=== PATIENT | male | born 1960 | race Two or more races ===

== ENCOUNTER 2017-08-05 14:49 | Inpatient (IN) | payer OTHER ==
[2017-08-05 18:03] VITALS: BMI 28.1
--- NOTE | 2017-08-05 20:16 | HP ---
Admission ROS [facility] Chief Complaint: Patient is being admitted to rehab for alcohol and cocaine dependence Allergies/Adverse Reactions: Allergies Allergy/AdvReac Type Severity Reaction Status Date / Time No Known Allergies Allergy Verified 08/05/17 19:28 History of Present Illness: 57 years old male admitted to rehab for alcohol and cocaine dependence. Reports asthma, diabetes and previous rehab at [facility] 05/2017. Exam Limitations: No Limitations - Ebola screening Have you traveled outside of the country in the last 21 days: No Have you had contact with anyone from an Ebola affected area: No Have you been sick,other than usual withdrawal symptoms: No Do you have a fever: No - Review of Systems Constitutional: No Symptoms Reported EENT: reports: No Symptoms Reported Respiratory: reports: No Symptoms reported Cardiac: reports: No Symptoms Reported GI: reports: No Symptoms Reported : reports: No Symptoms Reported Musculoskeletal: reports: No Symptoms Reported Integumentary: reports: No Symptoms Reported Neuro: reports: No Symptoms reported Endocrine: reports: No Symptoms Reported Hematology: reports: No Symptoms Reported Psychiatric: reports: No Sypmtoms Reported Other Systems: Reviewed and Negative Patient History - Patient Medical History Hx Anemia: No Hx Asthma: Yes (on MDI) Hx Chronic Obstructive Pulmonary Disease (COPD): No Hx Cancer: No Hx Cardiac Disorders: No Hx Congestive Heart Failure: No Hx Hypertension: No Hx Hypercholesterolemia: No HX Cerebrovascular Accident: No Hx Seizures: No Hx Diabetes: Yes (on Metformin) Hx Gastrointestinal Disorders: No Hx Liver Disease: No Hx Genitourinary Disorders: No Hx Sexually Transmitted Disorders: No Hx Renal Disease (ESRD): No Hx Thyroid Disease: No Hx Human Immunodeficiency Virus (HIV): No (Negative 2016) Hx Hepatitis C: No Hx Depression: No Hx Suicide Attempt: No (Denies suicidal ideation) Hx Bipolar Disorder: No Hx Schizophrenia: No - Patient Surgical History Past Surgical History: Yes Hx Neurologic Surgery: No Hx Cataract Extraction: No Hx Cardiac Surgery: No Hx Lung Surgery: No Hx Abdominal Surgery: No Hx Appendectomy: No Hx Cholecystectomy: No Hx Genitourinary Surgery: No Hx Orthopedic Surgery: Yes (Jaw 1998 and left ankle 1997) Anesthesia Reaction: No - PPD History Previous Implant?: No PPD to be Administered?: Yes - Reproductive History Patient is a Female of Child Bearing Age (11 -55 yrs old): No (male) - Smoking Cessation Smoking history: Current some day smoker Have you smoked in the past 12 months: Yes Aproximately how many cigarettes per day: 20 Hx Chewing Tobacco Use: No Initiated information on smoking cessation: Yes 'Breaking Loose' booklet given: 08/05/17 - Substance & Tx. History Hx Alcohol Use: No Hx Substance Use: Yes Substance Use Type: Alcohol, Cocaine Hx Substance Use Treatment: Yes - Substances Abused Alcohol Route: Oral Frequency: 3-6 times per week Amount used: Beer 3 packs, Vodka 5 shots Age of first use: 18 Date of Last Use: 06/19/17 Cocaine Route: Inhalation Frequency: 3-6 times per week Amount used: 3 grams Age of first use: 18 Date of Last Use: 06/19/17 Family Disease History - Family Disease History Family Disease History: CA: Father (Lung Ca, ), Mother (Breast Ca, ) Admission Physical Exam [facility] - Vital Signs Vital Signs: Vital Signs - 24 hr 08/05/17 18:01 Temperature 97.2 F L Pulse Rate 81 Respiratory 18 Rate Blood Pressure 134/75 - Physical General Appearance: Yes: No Apparent Distress, Nourished, Appropriately Dressed HEENTM: Yes: Within Normal Limits, EOMI, Normal Voice, RUDDY Respiratory: Yes: Lungs Clear, Normal Breath Sounds, No Respiratory Distress Neck: Yes: Supple, Other (surgical scar right neck) Breast: Yes: Breast Exam Deferred Cardiology: Yes: Regular Rhythm, Regular Rate, S1, S2 Abdominal: Yes: Normal Bowel Sounds, Non Tender, Soft Genitourinary: Yes: Within Normal Limits Back: Yes: Within Normal Limits Musculoskeletal: Yes: Within Normal Limits Extremities: Yes: Normal Inspection, Normal Range of Motion, Non-Tender, Other ( surgical scar left ankle) Neurological: Yes: Fully Oriented, Alert, Normal Response Integumentary: Yes: Warm Lymphatic: Yes: Within Normal Limits - Diagnostic (1) Alcohol dependence with uncomplicated withdrawal Current Visit: Yes Status: Chronic (2) Cocaine dependence Current Visit: Yes Status: Chronic (3) Asthma Current Visit: Yes Status: Chronic Cleared for Admission [facility] - Detox or Rehab [facility] Level of Care: Observation Bed Claeared for Rehab Admission: Yes [facility] Breath Alcohol Content Breath Alcohol Content: 0 Urine Drug Screen - Results Drug Screen Negative: Yes Inpatient Rehab Admission - Initial Determination Are CD services needed?: Yes Free of communicable disease: Yes Not in need of hospitalization: Yes - Rehab Admission Criteria Previous failed treatment: Yes Poor recovery environment: Yes Comorbidities: Yes Lacks judgement: No Patient is meeting Inpatient Rehab admission criteria:: Yes
[2017-08-05] MEDS ORDERED: hydrOXYzine PAMOATE 50 MG CAPSULE (FP) PO PRN (20:32)
[2017-08-05] MEDS ORDERED: guaiFENesin/D-METHORPHAN HB 10 ML UNIT-DOSE CUPS PO PRN (20:32)
[2017-08-05] MEDS ORDERED: MAGNESIUM CITRATE 300 ML BOTTLE PO PRN (20:32)
[2017-08-05] MEDS ORDERED: LOPERAMIDE HCL 2 MG CAPSULE PO PRN (20:32)
[2017-08-05] MEDS ORDERED: MAG HYDROX/AL HYDROX/SIMETH 30 ML UNIT-DOSE CUP PO PRN (20:32)
[2017-08-05] MEDS ORDERED: TUBERCULIN PPD 5 TU/0.1ML VIAL ID ONE (22:54)
[2017-08-05] MEDS: ATORVASTATIN CA 20 MG TABLET (FP) PO SCH (22:57)
[2017-08-05] MEDS: THIAMINE HCL 100 MG TABLET (FP) PO SCH (22:57)
[2017-08-05] MEDS: ALBUTEROL SO4 18 GM HFA INHALER IH SCH (22:57)
[2017-08-06 00:49] LABS: URINE APPEARANCE CLEAR; URINE BILIRUBIN NEGATIVE (NEGATIVE); URINE BLOOD NEGATIVE (NEGATIVE); URINE COLOR YELLOW; URINE GLUCOSE (UA) NEGATIVE (NEGATIVE); URINE KETONE NEGATIVE (NEGATIVE); URINE NITRITE NEGATIVE (NEGATIVE); URINE PROTEIN NEGATIVE (NEGATIVE); URINE UROBILINOGEN NEGATIVE mg/dL (0.2-1.0)
[2017-08-06] MEDS: metFORMIN HCL 500 MG TABLET (FP) PO SCH ×2 (06:29→17:14)
[2017-08-06] MEDS: ALBUTEROL SO4 18 GM HFA INHALER IH SCH ×3 (06:29→21:24)
[2017-08-06] MEDS: NICOTINE POLACRILEX 2 MG GUM BC PRN (07:37)
[2017-08-06 10:04] LABS: MCH 31.8 pg (25.7-33.7); MCHC 34.5 g/dl (32.0-35.9); MEAN CELL VOLUME 92.1 fl (80-96); MEAN PLT VOLUME 7.8 fl (7.5-11.1); PLATELET COUNT 317 K/MM3 (134-434); RDW 12.9 % (11.9-15.9); WHITE BLOOD COUNT 10.1 K/mm3 (4.0-10.0)
[2017-08-06 10:07] LABS: ALBUMIN 3.7 g/dl (3.4-5.0); ANION GAP 4 (8-16); CALCIUM 8.6 mg/dL (8.5-10.1); CO2 32 mmol/L (21-32); GLUCOSE,RANDOM 155 mg/dL (74-106)
[2017-08-06] MEDS: ASPIRIN 81 MG CHEWABLE TABLETS PO SCH (10:10)
[2017-08-06] MEDS: ARIPiprazole 2 MG TABLET PO SCH (10:10)
[2017-08-06 10:11] LABS: ALK PHOS 118 U/L (45-117); BILIRUBIN,TOTAL 0.7 mg/dL (0.2-1.0); CREATININE 1.1 mg/dL (0.7-1.3); SGOT/AST 19 U/L (15-37); SGPT/ALT 54 U/L (12-78); TOT PROT 7.1 g/dl (6.4-8.2)
[2017-08-06] MEDS: NICOTINE 14 MG/24 HOURS TOPICAL PATCH TD SCH (10:11)
--- NOTE | 2017-08-06 10:11 | EKG ---
Test Reason : Blood Pressure : / mmHG Vent. Rate : 070 BPM Atrial Rate : 070 BPM P-R Int : 138 ms QRS Dur : 108 ms QT Int : 392 ms P-R-T Axes : 040 057 042 degrees QTc Int : 423 ms NORMAL SINUS RHYTHM NORMAL ECG NO PREVIOUS ECGS AVAILABLE Confirmed by VITA SIMMONS MD ([id number]) on 08/06/2017 10:11:04 AM Referred By: Confirmed By:VITA SIMMONS MD
[2017-08-06] MEDS: PRENATAL VITAMINS W/ FOLIC ACID TABLET (FP) PO SCH (10:12)
[2017-08-06 10:24] LABS: URINE LEUK ESTERASE Negative (NEGATIVE)
[2017-08-06] MEDS ORDERED: FLU VACCINE QUAD 60 MCG/0.5 ML (MDV 17-18) IM ONE (12:00)
[2017-08-06] MEDS ORDERED: PNEUMOC 13-VAL CONJ-DIP CRM/PF 0.5 ML DISP.SYRIN IM ONE (12:00)
[2017-08-06] MEDS ORDERED: PNEUMOCOCCAL 23 VACCINE 0.5 ML VIAL IM ONE (12:00)
--- NOTE | 2017-08-06 16:30 | HP ---
Psychiatrist Admission - Data Date of interview: 08/06/17 Admission source: [facility] Identifying data: This is the first admission to [address] [place] [address] inpatient rehabilitation for this 57 yo single,no children,homeless,employed. Medical History: Significant for DM,Fracture of L ankle. Psychiatric History: Reports some anxiety once in a while since 12 yo,addressed this recently.Last time he was on psych meds was [place] in [facility] inpatient rehab.Patient was on Neurontin 100 mg po tid,Abilfy 10 mg po daily.Patient has no regular psychiatric follow up,but he is willing to restart above mentioned medications. Physical/Sexual Abuse/Trauma History: denies Vital Signs: Vital Signs - 24 hr 08/05/17 08/05/17 08/06/17 18:01 23:29 03:30 Temperature 97.2 F L 97.7 F Pulse Rate 81 89 Respiratory 18 18 18 Rate Blood Pressure 134/75 140/88 08/06/17 06:54 Temperature 97.4 F L Pulse Rate 74 Respiratory 18 Rate Blood Pressure 134/95 Allergies/Adverse Reactions: Allergies Allergy/AdvReac Type Severity Reaction Status Date / Time No Known Allergies Allergy Verified 08/05/17 19:28 Date of last physical exam: 08/05/17 Concur with the findings of this exam: Yes - Substance Abuse/Tx History Hx Alcohol Use: Yes (drinking since 18 yo,hard liquor) Hx Substance Use: Yes (cocaine since 19 yo,$ 200 on the weekend) Substance Use Type: Alcohol, Cocaine Hx Substance Use Treatment: Yes (this is his first inpatient rehab,longest abstinence 4 years) Mental Status Exam - Mental Status Exam Alert and Oriented to: Time, Place, Person Cognitive Function: Grossly Intact Patient Appearance: Well Groomed Mood: Nervous Affect: Mood Congruent, Labile Patient Behavior: Cooperative Speech Pattern: Clear Voice Loudness: Normal Thought Process: Goal Oriented Thought Disorder: Not Present Hallucinations: Denies Suicidal Ideation: Denies Homicidal Ideation: Denies Insight/Judgement: Fair Sleep: Difficulty falling asleep Appetite: Good Muscle strength/Tone: Normal Gait/Station: Normal Psychiatric Findings - Problem List ([place] 1, 2,3) (1) Asthma Current Visit: Yes Status: Chronic (2) Cocaine dependence Current Visit: Yes Status: Chronic (3) Alcohol dependence Current Visit: Yes Status: Chronic (4) Substance induced mood disorder Current Visit: Yes Status: Chronic - Initial Treatment Plan Initial Treatment Plan: Neurontin 300 mg po tid,Abilify 10 mg po daily and Trazodone 50 mg po hs.
[2017-08-06] MEDS: MENTHOL/PHENOL 1 EACH UD MM PRN (20:35)
[2017-08-06] MEDS: ATORVASTATIN CA 20 MG TABLET (FP) PO SCH (21:23)
[2017-08-06] MEDS: THIAMINE HCL 100 MG TABLET (FP) PO SCH (21:23)
[2017-08-06] MEDS: traZODone HCL 50 MG TABLET (FP) PO SCH (21:23)
[2017-08-06] MEDS: GABAPENTIN 300 MG CAPSULE (FP) PO SCH (21:23)
[2017-08-06] MEDS: diphenhydrAMINE HCL 50 MG CAPSULE PO PRN (21:24)
[2017-08-07] MEDS: metFORMIN HCL 500 MG TABLET (FP) PO SCH ×2 (06:47→17:06)
[2017-08-07] MEDS: GABAPENTIN 300 MG CAPSULE (FP) PO SCH ×3 (06:47→21:44)
[2017-08-07] MEDS: ALBUTEROL SO4 18 GM HFA INHALER IH SCH ×3 (07:17→22:28)
[2017-08-07] MEDS: ASPIRIN 81 MG CHEWABLE TABLETS PO SCH (10:09)
[2017-08-07] MEDS: ARIPiprazole 2 MG TABLET PO SCH (10:09)
[2017-08-07] MEDS: PRENATAL VITAMINS W/ FOLIC ACID TABLET (FP) PO SCH (10:09)
[2017-08-07] MEDS: NICOTINE 14 MG/24 HOURS TOPICAL PATCH TD SCH (10:09)
[2017-08-07] MEDS: traZODone HCL 50 MG TABLET (FP) PO SCH (21:44)
[2017-08-07] MEDS: THIAMINE HCL 100 MG TABLET (FP) PO SCH (21:44)
[2017-08-07] MEDS: ATORVASTATIN CA 20 MG TABLET (FP) PO SCH (21:44)
[2017-08-07] MEDS: MENTHOL/PHENOL 1 EACH UD MM PRN (22:30)
[2017-08-08] MEDS: metFORMIN HCL 500 MG TABLET (FP) PO SCH ×2 (06:48→16:44)
[2017-08-08] MEDS: GABAPENTIN 300 MG CAPSULE (FP) PO SCH ×3 (06:48→21:27)
[2017-08-08] MEDS: ALBUTEROL SO4 18 GM HFA INHALER IH SCH ×3 (06:50→21:29)
[2017-08-08] MEDS: NICOTINE POLACRILEX 2 MG GUM BC PRN (06:59)
[2017-08-08] MEDS: NICOTINE 14 MG/24 HOURS TOPICAL PATCH TD SCH (10:01)
[2017-08-08] MEDS: PRENATAL VITAMINS W/ FOLIC ACID TABLET (FP) PO SCH (10:01)
[2017-08-08] MEDS: ASPIRIN 81 MG CHEWABLE TABLETS PO SCH (10:01)
[2017-08-08] MEDS: ARIPiprazole 2 MG TABLET PO SCH (10:02)
[2017-08-08] MEDS: MENTHOL/PHENOL 1 EACH UD MM PRN (20:01)
[2017-08-08] MEDS: diphenhydrAMINE HCL 50 MG CAPSULE PO PRN (21:27)
[2017-08-08] MEDS: THIAMINE HCL 100 MG TABLET (FP) PO SCH (21:27)
[2017-08-08] MEDS: traZODone HCL 50 MG TABLET (FP) PO SCH (21:27)
[2017-08-08] MEDS: ATORVASTATIN CA 20 MG TABLET (FP) PO SCH (21:27)
[2017-08-09] MEDS: metFORMIN HCL 500 MG TABLET (FP) PO SCH ×2 (06:20→16:50)
[2017-08-09] MEDS: ALBUTEROL SO4 18 GM HFA INHALER IH SCH ×3 (06:20→21:33)
[2017-08-09] MEDS: GABAPENTIN 300 MG CAPSULE (FP) PO SCH ×3 (06:20→21:29)
[2017-08-09] MEDS: MENTHOL/PHENOL 1 EACH UD MM PRN (06:54)
[2017-08-09] MEDS: NICOTINE POLACRILEX 2 MG GUM BC PRN (07:02)
[2017-08-09] MEDS: PRENATAL VITAMINS W/ FOLIC ACID TABLET (FP) PO SCH (10:14)
[2017-08-09] MEDS: ASPIRIN 81 MG CHEWABLE TABLETS PO SCH (10:14)
[2017-08-09] MEDS: NICOTINE 14 MG/24 HOURS TOPICAL PATCH TD SCH (10:14)
[2017-08-09] MEDS: ARIPiprazole 2 MG TABLET PO SCH (10:15)
[2017-08-09] MEDS: ATORVASTATIN CA 20 MG TABLET (FP) PO SCH (21:29)
[2017-08-09] MEDS: THIAMINE HCL 100 MG TABLET (FP) PO SCH (21:29)
[2017-08-09] MEDS: traZODone HCL 50 MG TABLET (FP) PO SCH (21:29)
[2017-08-10] MEDS: ACETAMINOPHEN 325 MG TABLET (FP) PO PRN (01:06)
[2017-08-10] MEDS: MENTHOL/PHENOL 1 EACH UD MM PRN (01:07)
[2017-08-10] MEDS: metFORMIN HCL 500 MG TABLET (FP) PO SCH ×2 (06:24→16:44)
[2017-08-10] MEDS: GABAPENTIN 300 MG CAPSULE (FP) PO SCH ×3 (06:24→21:23)
[2017-08-10] MEDS: ALBUTEROL SO4 18 GM HFA INHALER IH SCH ×3 (07:25→21:23)
[2017-08-10] MEDS: ASPIRIN 81 MG CHEWABLE TABLETS PO SCH (09:59)
[2017-08-10] MEDS: PRENATAL VITAMINS W/ FOLIC ACID TABLET (FP) PO SCH (10:00)
[2017-08-10] MEDS: NICOTINE 14 MG/24 HOURS TOPICAL PATCH TD SCH (10:00)
[2017-08-10] MEDS: ARIPiprazole 2 MG TABLET PO SCH (10:02)
[2017-08-10] MEDS: THIAMINE HCL 100 MG TABLET (FP) PO SCH (21:23)
[2017-08-10] MEDS: ATORVASTATIN CA 20 MG TABLET (FP) PO SCH (21:23)
[2017-08-10] MEDS: traZODone HCL 50 MG TABLET (FP) PO SCH (21:23)
[2017-08-10] MEDS: diphenhydrAMINE HCL 50 MG CAPSULE PO PRN (22:01)
[2017-08-10] MEDS: NICOTINE POLACRILEX 2 MG GUM BC PRN (22:01)
[2017-08-11] MEDS: ALBUTEROL SO4 18 GM HFA INHALER IH SCH ×3 (06:22→21:29)
[2017-08-11] MEDS: GABAPENTIN 300 MG CAPSULE (FP) PO SCH ×3 (06:22→21:28)
[2017-08-11] MEDS: metFORMIN HCL 500 MG TABLET (FP) PO SCH ×2 (06:22→17:21)
[2017-08-11] MEDS: ARIPiprazole 2 MG TABLET PO SCH (10:13)
[2017-08-11] MEDS: ASPIRIN 81 MG CHEWABLE TABLETS PO SCH (10:14)
[2017-08-11] MEDS: NICOTINE 14 MG/24 HOURS TOPICAL PATCH TD SCH (10:14)
[2017-08-11] MEDS: PRENATAL VITAMINS W/ FOLIC ACID TABLET (FP) PO SCH (10:14)
[2017-08-11] MEDS: THIAMINE HCL 100 MG TABLET (FP) PO SCH (21:28)
[2017-08-11] MEDS: ATORVASTATIN CA 20 MG TABLET (FP) PO SCH (21:28)
[2017-08-11] MEDS: traZODone HCL 50 MG TABLET (FP) PO SCH (21:28)
[2017-08-11] MEDS: diphenhydrAMINE HCL 50 MG CAPSULE PO PRN (21:30)
[2017-08-11] MEDS: NICOTINE POLACRILEX 2 MG GUM BC PRN (22:06)
[2017-08-12] MEDS: ALBUTEROL SO4 18 GM HFA INHALER IH SCH ×3 (06:29→21:28)
[2017-08-12] MEDS: GABAPENTIN 300 MG CAPSULE (FP) PO SCH ×3 (06:29→21:28)
[2017-08-12] MEDS: metFORMIN HCL 500 MG TABLET (FP) PO SCH ×2 (06:29→16:51)
[2017-08-12] MEDS: P-EPHED 60MG/TRIPROLIDI 2.5MG TABLET PO PRN ×2 (06:30→17:23)
[2017-08-12] MEDS: ASPIRIN 81 MG CHEWABLE TABLETS PO SCH (10:18)
[2017-08-12] MEDS: ARIPiprazole 2 MG TABLET PO SCH (10:18)
[2017-08-12] MEDS: PRENATAL VITAMINS W/ FOLIC ACID TABLET (FP) PO SCH (10:18)
[2017-08-12] MEDS: NICOTINE 14 MG/24 HOURS TOPICAL PATCH TD SCH (10:18)
[2017-08-12] MEDS ORDERED: COLLOIDAL OATMEAL 1 BAR EACH TP PRN (12:31)
[2017-08-12] MEDS: MAGNESIUM HYDROX 2400MG/30ML ORAL SUSPENSION 30 ML CUP PO PRN (17:24)
[2017-08-12] MEDS: ATORVASTATIN CA 20 MG TABLET (FP) PO SCH (21:28)
[2017-08-12] MEDS: traZODone HCL 50 MG TABLET (FP) PO SCH (21:28)
[2017-08-12] MEDS: THIAMINE HCL 100 MG TABLET (FP) PO SCH (21:28)
[2017-08-12] MEDS: diphenhydrAMINE HCL 50 MG CAPSULE PO PRN (21:29)
[2017-08-13] MEDS: GABAPENTIN 300 MG CAPSULE (FP) PO SCH ×4 (06:10→21:27)
[2017-08-13] MEDS: metFORMIN HCL 500 MG TABLET (FP) PO SCH ×2 (06:10→16:41)
[2017-08-13] MEDS: ALBUTEROL SO4 18 GM HFA INHALER IH SCH ×3 (07:44→21:28)
[2017-08-13] MEDS: ASPIRIN 81 MG CHEWABLE TABLETS PO SCH (09:51)
[2017-08-13] MEDS: PRENATAL VITAMINS W/ FOLIC ACID TABLET (FP) PO SCH (09:51)
[2017-08-13] MEDS: NICOTINE 14 MG/24 HOURS TOPICAL PATCH TD SCH (09:52)
[2017-08-13] MEDS: ARIPiprazole 2 MG TABLET PO SCH (09:54)
[2017-08-13] MEDS: NICOTINE POLACRILEX 2 MG GUM BC PRN (09:56)
--- NOTE | 2017-08-13 14:23 | PN ---
Psychiatric Progress Note Vital Signs: Vital Signs Period Temp Pulse Resp BP Sys/Monae Pulse Ox Last 24 Hr 97.7 F 79 16-18 111/67 Date of Session: 08/13/17 Chief Complaint:: Perez still having mood instability.I used to take high dose of neurontin. HPI: Patient addressed Alcohol and Cocaine dependence comorbid with Substance induced mood disorder. ROS: Significant for BA. Current Medications: Active Medications Generic Name Dose Route Start Last Admin Trade Name Freq PRN Reason Stop Dose Admin Acetaminophen 650 mg 08/05/17 20:32 08/10/17 01:06 Tylenol - PO 650 mg Q4H PRN Administration PAIN Al Hydroxide/Mg Hydroxide 30 ml 08/05/17 20:32 Mylanta Oral Suspension - PO Q6H PRN DYSPEPSIA Albuterol Sulfate 2 puff 08/05/17 22:00 08/13/17 07:44 Ventolin Hfa Inhaler - IH Not Given TID COLTON Aripiprazole 2 mg 08/06/17 10:00 08/13/17 09:54 Abilify PO 2 mg DAILY COLTON Administration Aspirin 81 mg 08/06/17 10:00 08/13/17 09:51 Asa - PO 81 mg DAILY COLTON Administration Atorvastatin Calcium 20 mg 08/05/17 22:00 08/12/17 21:28 Lipitor - PO 20 mg HS COLTON Administration Colloidal Oatmeal 1 applic 08/12/17 12:31 Aveeno Soap - TP DAILY PRN HYGEINE Diphenhydramine HCl 50 mg 08/05/17 20:32 08/12/17 21:29 Benadryl - PO 50 mg HSMR1 PRN Administration INSOMNIA Eucalyptus/Menthol/Phenol/Sorbitol 1 each 08/05/17 20:32 08/10/17 01:07 Cepastat Lozenge - MM 1 each Q4H PRN Administration SORE THROAT Gabapentin 600 mg 08/13/17 14:30 Neurontin - PO TID COLTON Guaifenesin 10 ml 08/05/17 20:32 08/08/17 06:49 Robitussin Dm - PO 10 ml Q6H PRN Administration COUGH Hydroxyzine Pamoate 50 mg 08/05/17 20:32 Vistaril - PO Q4H PRN AGITATION Loperamide HCl 4 mg 08/05/17 20:32 Imodium - PO Q6H PRN DIARRHEA Magnesium Citrate 300 ml 08/05/17 20:32 Citroma - PO Q48H PRN CONSTIPATION Magnesium Hydroxide 30 ml 08/05/17 20:32 08/12/17 17:24 Milk Of Magnesia - PO 30 ml DAILY PRN Administration CONSTIPATION Metformin HCl 500 mg 08/06/17 07:00 08/13/17 06:10 Glucophage - PO 500 mg BIDI COLTON Administration Nicotine 14 mg 08/06/17 10:00 08/13/17 09:52 Nicoderm Patch - TD 14 mg DAILY COLTON Administration Nicotine Polacrilex 2 mg 08/05/17 20:32 08/13/17 09:56 Nicorette Gum - BC 2 mg Q2H PRN Administration NICOTINE REPLACEMENT RX Multivit/Folic Acid/Iron 1 tab 08/06/17 10:00 08/13/17 09:51 Vitamins (Sjr) - PO 1 tab DAILY COLTON Administration Pseudoephedrine/Triprolidine 1 combo 08/05/17 20:32 08/12/17 17:23 Actifed - PO 1 combo TID PRN Administration NASAL CONGESTION Thiamine HCl 100 mg 08/05/17 22:00 08/12/17 21:28 Vitamin B1 - PO 100 mg HS COLTON Administration Trazodone HCl 50 mg 08/06/17 22:00 08/12/17 21:28 Desyrel - PO 50 mg HS COLTON Administration Current Side Effect: No Lab tests ordered: No Lab tests reviewed: Yes Provider note:: Patient was seen in my office,chart was revuewed,attending notes appreciated.Treatment plan including medications managemnt has been discussed with the patient.Properties of Neurontin has been discussed with the patient including side effects,benefits and dose adjustment.Neurontin 300 mg po tid will be adjusted to 600 mg po tid. Supportive therapy provided. Total face to face time:: 30 Mental Status Exam - Mental Status Exam Alert and Oriented to: Time, Place, Person Cognitive Function: Grossly Intact Patient Appearance: Well Groomed Mood: Anxious Affect: Mood Congruent, Labile Patient Behavior: Cooperative Speech Pattern: Clear Voice Loudness: Normal Thought Process: Goal Oriented Thought Disorder: Not Present Hallucinations: Denies Suicidal Ideation: Denies Homicidal Ideation: Denies Insight/Judgement: Fair Sleep: Fair Appetite: Good Muscle strength/Tone: Normal Gait/Station: Normal Psychiatric Treatment Plan - Problem List (1) Asthma Current Visit: Yes (2) Cocaine dependence Current Visit: Yes (3) Alcohol dependence Current Visit: Yes (4) Substance induced mood disorder Current Visit: Yes
[2017-08-13] MEDS: THIAMINE HCL 100 MG TABLET (FP) PO SCH (21:27)
[2017-08-13] MEDS: ATORVASTATIN CA 20 MG TABLET (FP) PO SCH (21:27)
[2017-08-13] MEDS: traZODone HCL 50 MG TABLET (FP) PO SCH (21:27)
[2017-08-13] MEDS: diphenhydrAMINE HCL 50 MG CAPSULE PO PRN (21:28)
[2017-08-13] MEDS: MAGNESIUM HYDROX 2400MG/30ML ORAL SUSPENSION 30 ML CUP PO PRN (21:30)
[2017-08-14] MEDS: GABAPENTIN 300 MG CAPSULE (FP) PO SCH ×3 (06:09→21:19)
[2017-08-14] MEDS: metFORMIN HCL 500 MG TABLET (FP) PO SCH ×2 (06:09→16:34)
[2017-08-14] MEDS: ALBUTEROL SO4 18 GM HFA INHALER IH SCH ×3 (06:11→21:21)
[2017-08-14] MEDS: ASPIRIN 81 MG CHEWABLE TABLETS PO SCH (09:38)
[2017-08-14] MEDS: PRENATAL VITAMINS W/ FOLIC ACID TABLET (FP) PO SCH (09:38)
[2017-08-14] MEDS: NICOTINE 14 MG/24 HOURS TOPICAL PATCH TD SCH (09:39)
[2017-08-14] MEDS: ARIPiprazole 2 MG TABLET PO SCH (09:39)
[2017-08-14] MEDS: P-EPHED 60MG/TRIPROLIDI 2.5MG TABLET PO PRN (12:30)
[2017-08-14] MEDS: MAGNESIUM HYDROX 2400MG/30ML ORAL SUSPENSION 30 ML CUP PO PRN (13:55)
[2017-08-14] MEDS: ATORVASTATIN CA 20 MG TABLET (FP) PO SCH (21:19)
[2017-08-14] MEDS: THIAMINE HCL 100 MG TABLET (FP) PO SCH (21:19)
[2017-08-14] MEDS: traZODone HCL 50 MG TABLET (FP) PO SCH (21:19)
[2017-08-14] MEDS: NICOTINE POLACRILEX 2 MG GUM BC PRN (21:20)
[2017-08-14] MEDS: diphenhydrAMINE HCL 50 MG CAPSULE PO PRN (21:20)
[2017-08-15] MEDS: metFORMIN HCL 500 MG TABLET (FP) PO SCH ×2 (06:17→16:44)
[2017-08-15] MEDS: GABAPENTIN 300 MG CAPSULE (FP) PO SCH ×3 (06:18→21:23)
[2017-08-15] MEDS: ALBUTEROL SO4 18 GM HFA INHALER IH SCH ×2 (06:18→14:08)
[2017-08-15] MEDS: MAGNESIUM HYDROX 2400MG/30ML ORAL SUSPENSION 30 ML CUP PO PRN (06:19)
[2017-08-15] MEDS: P-EPHED 60MG/TRIPROLIDI 2.5MG TABLET PO PRN (07:35)
[2017-08-15] MEDS: NICOTINE 14 MG/24 HOURS TOPICAL PATCH TD SCH (09:56)
[2017-08-15] MEDS: ASPIRIN 81 MG CHEWABLE TABLETS PO SCH (09:56)
[2017-08-15] MEDS: ARIPiprazole 2 MG TABLET PO SCH (09:56)
[2017-08-15] MEDS: PRENATAL VITAMINS W/ FOLIC ACID TABLET (FP) PO SCH (09:56)
[2017-08-15] MEDS: ALBUTEROL SO4 18 GM HFA INHALER IH PRN (17:48)
[2017-08-15] MEDS: ATORVASTATIN CA 20 MG TABLET (FP) PO SCH (21:23)
[2017-08-15] MEDS: traZODone HCL 50 MG TABLET (FP) PO SCH (21:23)
[2017-08-15] MEDS: THIAMINE HCL 100 MG TABLET (FP) PO SCH (21:23)
[2017-08-15] MEDS: diphenhydrAMINE HCL 50 MG CAPSULE PO PRN (21:24)
[2017-08-16] MEDS: GABAPENTIN 300 MG CAPSULE (FP) PO SCH ×3 (06:23→21:30)
[2017-08-16] MEDS: metFORMIN HCL 500 MG TABLET (FP) PO SCH ×2 (06:23→16:39)
[2017-08-16] MEDS: MAGNESIUM HYDROX 2400MG/30ML ORAL SUSPENSION 30 ML CUP PO PRN (06:25)
[2017-08-16] MEDS: NICOTINE 14 MG/24 HOURS TOPICAL PATCH TD SCH (09:52)
[2017-08-16] MEDS: PRENATAL VITAMINS W/ FOLIC ACID TABLET (FP) PO SCH (09:52)
[2017-08-16] MEDS: ASPIRIN 81 MG CHEWABLE TABLETS PO SCH (09:52)
[2017-08-16] MEDS: ARIPiprazole 2 MG TABLET PO SCH (09:53)
[2017-08-16] MEDS: ATORVASTATIN CA 20 MG TABLET (FP) PO SCH (21:29)
[2017-08-16] MEDS: traZODone HCL 50 MG TABLET (FP) PO SCH (21:29)
[2017-08-16] MEDS: THIAMINE HCL 100 MG TABLET (FP) PO SCH (21:29)
[2017-08-16] MEDS: ACETAMINOPHEN 325 MG TABLET (FP) PO PRN (21:31)
[2017-08-16] MEDS: diphenhydrAMINE HCL 50 MG CAPSULE PO PRN (21:32)
[2017-08-17] MEDS: GABAPENTIN 300 MG CAPSULE (FP) PO SCH ×3 (06:01→21:15)
[2017-08-17] MEDS: metFORMIN HCL 500 MG TABLET (FP) PO SCH ×2 (06:01→16:58)
[2017-08-17] MEDS: ACETAMINOPHEN 325 MG TABLET (FP) PO PRN (06:02)
[2017-08-17] MEDS: NICOTINE POLACRILEX 2 MG GUM BC PRN (06:02)
[2017-08-17 06:49] VITALS: TEMP 97.3
[2017-08-17] MEDS: ASPIRIN 81 MG CHEWABLE TABLETS PO SCH (09:56)
[2017-08-17] MEDS: NICOTINE 14 MG/24 HOURS TOPICAL PATCH TD SCH (09:56)
[2017-08-17] MEDS: PRENATAL VITAMINS W/ FOLIC ACID TABLET (FP) PO SCH (09:56)
[2017-08-17] MEDS: ARIPiprazole 2 MG TABLET PO SCH (09:56)
[2017-08-17] MEDS: THIAMINE HCL 100 MG TABLET (FP) PO SCH (21:14)
[2017-08-17] MEDS: ATORVASTATIN CA 20 MG TABLET (FP) PO SCH (21:15)
[2017-08-17] MEDS: traZODone HCL 50 MG TABLET (FP) PO SCH (21:15)
[2017-08-17] MEDS: diphenhydrAMINE HCL 50 MG CAPSULE PO PRN (21:15)
[2017-08-17] MEDS: ALBUTEROL SO4 18 GM HFA INHALER IH PRN (21:16)
[2017-08-18] MEDS: metFORMIN HCL 500 MG TABLET (FP) PO SCH ×2 (06:27→17:14)
[2017-08-18] MEDS: GABAPENTIN 300 MG CAPSULE (FP) PO SCH ×3 (06:27→21:19)
[2017-08-18] MEDS: ASPIRIN 81 MG CHEWABLE TABLETS PO SCH (09:53)
[2017-08-18] MEDS: PRENATAL VITAMINS W/ FOLIC ACID TABLET (FP) PO SCH (09:53)
[2017-08-18] MEDS: NICOTINE 14 MG/24 HOURS TOPICAL PATCH TD SCH (09:53)
[2017-08-18] MEDS: ARIPiprazole 2 MG TABLET PO SCH (09:53)
[2017-08-18] MEDS: traZODone HCL 50 MG TABLET (FP) PO SCH (21:19)
[2017-08-18] MEDS: THIAMINE HCL 100 MG TABLET (FP) PO SCH (21:19)
[2017-08-18] MEDS: ATORVASTATIN CA 20 MG TABLET (FP) PO SCH (21:19)
[2017-08-18] MEDS: diphenhydrAMINE HCL 50 MG CAPSULE PO PRN (21:19)
[2017-08-19] MEDS: metFORMIN HCL 500 MG TABLET (FP) PO SCH (06:07)
[2017-08-19] MEDS: GABAPENTIN 300 MG CAPSULE (FP) PO SCH (06:07)
[2017-08-19 06:46] VITALS: BP 121/76; PULSE 70
[2017-08-19] MEDS: NICOTINE 14 MG/24 HOURS TOPICAL PATCH TD SCH (10:29)
[2017-08-19] MEDS: PRENATAL VITAMINS W/ FOLIC ACID TABLET (FP) PO SCH (10:29)
[2017-08-19] MEDS: ASPIRIN 81 MG CHEWABLE TABLETS PO SCH (10:29)
[2017-08-19] MEDS: ARIPiprazole 2 MG TABLET PO SCH (10:29)
--- NOTE | 2017-08-19 11:30 | PN ---
Psychiatric Progress Note Vital Signs: Vital Signs Period Temp Pulse Resp BP Sys/Monae Pulse Ox Last 24 Hr 97.3 F 70 18-18 121/76 Date of Session: 08/19/17 Chief Complaint:: discharge HPI: Patient has addressed alcohol , cocaine dependence comorbid substance induced mood disorder. Current Medications: Active Medications Generic Name Dose Route Start Last Admin Trade Name Freq PRN Reason Stop Dose Admin Acetaminophen 650 mg 08/05/17 20:32 08/17/17 06:02 Tylenol - PO 650 mg Q4H PRN Administration PAIN Al Hydroxide/Mg Hydroxide 30 ml 08/05/17 20:32 08/18/17 00:07 Mylanta Oral Suspension - PO 30 ml Q6H PRN Administration DYSPEPSIA Albuterol Sulfate 2 puff 08/15/17 17:02 08/17/17 21:16 Ventolin Hfa Inhaler - IH 2 puff Q4H PRN Administration ASTHMA Aripiprazole 2 mg 08/06/17 10:00 08/19/17 10:29 Abilify PO 2 mg DAILY COLTON Administration Aspirin 81 mg 08/06/17 10:00 08/19/17 10:29 Asa - PO 81 mg DAILY COLTON Administration Atorvastatin Calcium 20 mg 08/05/17 22:00 08/18/17 21:19 Lipitor - PO 20 mg HS COLTON Administration Colloidal Oatmeal 1 applic 08/12/17 12:31 08/13/17 17:33 Aveeno Soap - TP 1 applic DAILY PRN Administration HYGEINE Diphenhydramine HCl 50 mg 08/05/17 20:32 08/18/17 21:19 Benadryl - PO 50 mg HSMR1 PRN Administration INSOMNIA Eucalyptus/Menthol/Phenol/Sorbitol 1 each 08/05/17 20:32 08/10/17 01:07 Cepastat Lozenge - MM 1 each Q4H PRN Administration SORE THROAT Gabapentin 600 mg 08/13/17 14:30 08/19/17 06:07 Neurontin - PO 600 mg TID COLTON Administration Guaifenesin 10 ml 08/05/17 20:32 08/08/17 06:49 Robitussin Dm - PO 10 ml Q6H PRN Administration COUGH Hydroxyzine Pamoate 50 mg 08/05/17 20:32 Vistaril - PO Q4H PRN AGITATION Loperamide HCl 4 mg 08/05/17 20:32 Imodium - PO Q6H PRN DIARRHEA Magnesium Citrate 300 ml 08/05/17 20:32 08/17/17 06:04 Citroma - PO 300 ml Q48H PRN Administration CONSTIPATION Magnesium Hydroxide 30 ml 08/05/17 20:32 08/16/17 06:25 Milk Of Magnesia - PO 30 ml DAILY PRN Administration CONSTIPATION Metformin HCl 500 mg 08/06/17 07:00 08/19/17 06:07 Glucophage - PO 500 mg BIDI COLTON Administration Nicotine 14 mg 08/06/17 10:00 08/19/17 10:29 Nicoderm Patch - TD 14 mg DAILY COLTON Administration Nicotine Polacrilex 2 mg 08/05/17 20:32 08/17/17 06:02 Nicorette Gum - BC 2 mg Q2H PRN Administration NICOTINE REPLACEMENT RX Multivit/Folic Acid/Iron 1 tab 08/06/17 10:00 08/19/17 10:29 Vitamins (Sjr) - PO 1 tab DAILY COLTON Administration Pseudoephedrine/Triprolidine 1 combo 08/05/17 20:32 08/15/17 07:35 Actifed - PO 1 combo TID PRN Administration NASAL CONGESTION Thiamine HCl 100 mg 08/05/17 22:00 08/18/17 21:19 Vitamin B1 - PO 100 mg HS COLTON Administration Trazodone HCl 50 mg 08/06/17 22:00 08/18/17 21:19 Desyrel - PO 50 mg HS COLTON Administration Current Side Effect: No Lab tests ordered: No Lab tests reviewed: Yes Provider note:: Patient has completed today his treatment and met his goals, will continue address his issues at [facility]. HE gained insights into his addiction, understands the negative impact his addiction over his major life areas, including physical and menhtal health. Medications Gabapenitn, Abilify and Trazodone well tolerated, patient was encouraged to take medications as directed, scripts provided, stable for discharge today. Total face to face time:: 15 Mental Status Exam - Mental Status Exam Alert and Oriented to: Time, Place Cognitive Function: Good Patient Appearance: Well Groomed Mood: Hopeful Affect: Appropriate, Mood Congruent Patient Behavior: Appropriate, Cooperative Speech Pattern: Clear, Appropriate Voice Loudness: Normal Thought Process: Goal Oriented Thought Disorder: Not Present Hallucinations: Denies Suicidal Ideation: Denies Homicidal Ideation: Denies Insight/Judgement: Fair Sleep: Fair Appetite: Fair Muscle strength/Tone: Normal
== END 2017-08-19 09:47 | disposition home or self-care (01) | DRG 772 ==
LOC: YASAS 14:49 → Y5N 19:41
PROVIDERS: ADMIT Psychiatry & Neurology Psychiatry; ATTEND Psychiatry & Neurology Psychiatry
PROC: HZ42ZZZ Group Counseling for Substance Abuse Treatment, Cognitive-Behavioral (ICD-10-PCS; principal; 2017-08-05)
DX: F10.20 Alcohol dependence, uncomplicated (principal); F14.20 Cocaine dependence, uncomplicated; F19.24 Other psychoactive substance dependence with psychoactive substance-induced mood disorder; F17.210 Nicotine dependence, cigarettes, uncomplicated; J45.998 Other asthma; E11.9 Type 2 diabetes mellitus without complications; Z79.84 Long term (current) use of oral hypoglycemic drugs; Z59.0 Homelessness
CPT/HCPCS: 36415; 80053; 81003; 85027; 86593; 90688; 90732; 93005; 93010; G0008; G0009